=== PATIENT | female | born 1970 | race Caucasian/White ===

== ENCOUNTER → 2017-01-09 | Outpatient (CLI) | payer BC, OTHER ==
[~2017-01-09] MED LIST: ALLERGY SHOTS INJ; CETI10TA84 PO; CYCL10TA6 PO; LOSA1TAB38 PO; MULTTAB58 PO; ZNTT/150 PO
== END | disposition home or self-care (01) ==
LOC: C.LAB 13:19
PROVIDERS: ATTEND Family Medicine
DX: R14.0 Abdominal distension (gaseous) (principal)

== ENCOUNTER 2017-02-11 17:46 | Emergency (ER) | payer OTHER ==
[~2017-02-11] VITALS: Ht 162.6 cm; Wt 63.6 kg
[~2017-02-11 17:46] MED LIST changes: -CETI10TA84 PO; -LOSA1TAB38 PO; -ZNTT/150 PO
[2017-02-11 17:59] VITALS: BP 176/88; PULSE 55; TEMP 36.8; O2SAT 100; Ht 162.6 cm; Wt 63.6 kg
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
[2017-02-11] MEDS ORDERED: ZNTT/150 PO (18:46)
[2017-02-11] MEDS ORDERED: LOSA1TAB38 PO (18:46)
[2017-02-11] MEDS ORDERED: CETI10TA84 PO (18:46)
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
== END 2017-02-11 18:55 | disposition home or self-care (01) ==
LOC: C.EDB 17:47 → C.EDD 18:55
DX: S96.911A Strain of unspecified muscle and tendon at ankle and foot level, right foot, initial encounter (principal); W16.012A Fall into swimming pool striking water surface causing other injury, initial encounter; Y93.11 Activity, swimming; I10 Essential (primary) hypertension; Z79.899 Other long term (current) drug therapy

== ENCOUNTER → 2017-07-05 | Outpatient (CLI) | payer OTHER ==
[~2017-07-05] MED LIST changes: -ALLERGY SHOTS INJ; +CETI10TA84 PO; -CYCL10TA6 PO; +LOSA1TAB38 PO; +ZNTT/150 PO
--- NOTE | 2017-07-05 15:37 | MAMMOGRAPHY REPORT ---
BILATERAL DIGITAL SCREENING MAMMOGRAM TOMOSYNTHESIS WITH CAD: 07/05/2017 CLINICAL HISTORY: Routine screening. Patient has no complaints. TECHNIQUE: Breast tomosynthesis in addition to standard 2D mammography was performed. Current study was also evaluated with a Computer Aided Detection (CAD) system. COMPARISON: Comparison is made to exams dated: 07/04/2016 ultrasound, 07/04/2016 mammogram, 07/07/2015 mammogram, 12/14/2014 ultrasound, 12/14/2014 mammogram, and 07/28/2014 ultrasound - [facility]. BREAST COMPOSITION: The tissue of both breasts is extremely dense, which lowers the sensitivity of m ammography. FINDINGS: No suspicious masses, calcifications, or areas of architectural distortion are noted in ei ther breast. There has been no significant interval change compared to prior exams. IMPRESSION: ACR BI-RADS CATEGORY 1: NEGATIVE There is no mammographic evidence of malignancy. A 1 year screening mammogram is recommended. The pa tient will receive written notification of the results. Approximately 10% of breast cancers are not detected with mammography. A negative mammographic report should not delay biopsy if a clinically suggestive mass is present. Shabana Lopez M.D. ah/:07/05/2017 15:19:45 Offset Press Operator: Chrissy SMALLS(Darryl)(M), [facility] letter sent: Normal 1/2 BI-RADS Code: ACR BI-RADS Category 1: Negative
== END | disposition home or self-care (01) ==
LOC: C.MAMM 11:57
PROVIDERS: ATTEND Obstetrics & Gynecology
DX: Z12.31 Encounter for screening mammogram for malignant neoplasm of breast (principal)

== ENCOUNTER → 2017-10-04 | Outpatient (CLI) | payer OTHER ==
[~2017-10-04] MED LIST changes: +RANI150T85 PO; -ZNTT/150 PO
[2017-10-04 09:39] LABS: BASO % 0.2 %; BASO ABS # 0.01 K/uL (0-0.2); EOS % 5.9 %; EOS ABS # 0.24 K/uL (0-0.5); HEMATOCRIT 38.6 % (37-47); HEMOGLOBIN 13.5 g/dL (12.0-16.0); IG# 0.01 K/uL (0.00-0.02); LYMPH ABS # 1.64 K/uL (1.2-3.4); MEAN CELL VOLUME 91.9 fL (80-100); MEAN CORPUSCULAR HEMOGLOBIN 32.1 pg (25-34); MEAN PLATELET VOLUME 12.1 fL (7.4-10.4); MONO % 8.3 %; MONO ABS # 0.34 K/uL (0.11-0.59); NEUT % 45.4 %; NEUT ABS # 1.86 K/uL (1.4-6.5); PLATELET COUNT 170 K/uL (130-400); RED CELL DISTRIBUTION WIDTH CV 12.8 % (11.5-14.5)
[2017-10-04 10:00] LABS: BLOOD UREA NITROGEN 15 mg/dl (7-18); CALCIUM 8.9 mg/dl (8.5-10.1); CARBON DIOXIDE 28 mmol/L (21-32); CHOLESTEROL 179 mg/dl (0-200); CREATININE 0.84 mg/dl (0.60-1.20); GLUCOSE 90 mg/dl (70-99); POTASSIUM 3.9 mmol/L (3.5-5.1); SODIUM 138 mmol/L (136-145)
[2017-10-04 10:10] LABS: LDL CHOLESTEROL CALCULATED 97 mg/dl
== END | disposition home or self-care (01) ==
LOC: C.LAB 08:04
PROVIDERS: ATTEND Family Medicine
DX: Z13.220 Encounter for screening for lipoid disorders (principal); I10 Essential (primary) hypertension; L30.9 Dermatitis, unspecified; R53.83 Other fatigue

== ENCOUNTER 2023-10-02 15:13 | Inpatient (IN) ==
--- NOTE | 2023-10-02 15:17 | ED Triage Note ---
Date of Service October 02, 2023 Provider in Triage Author: Koby Hamilton History of Present Illness This patient was briefly evaluated while in triage. An abbreviated physical exam was performed. This patient is a 53-year-old Female who presents to the ED for evaluation of sick x 2 weeks. Ari marcial infection recently. Head and neck pain. Neck and jaw pain on left side, dizziness, nausea. Physical Exam GENERAL: 53 year old female. In no acute distress. SKIN: No lesions or rashes. HEART: Regular rate and rhythm. LUNGS: Clear to auscultation. NEURO: Alert and oriented. No deficits. MUSCULOSKELETAL: No deformities to inspection of the extremities. PSYCH: Patient is pleasant and answers all questions appropriately. Initial orders for labs and / or imaging were placed and patient was placed in t he waiting area until a bed is available. Please see further documentation for the full ED course.
[2023-10-02 16:01] LABS: Basophils # (auto) 0.02 K/uL (0.00-0.20); Basophils % (auto) 0.4 %; Eosinophils # (auto) 0.26 K/uL (0.00-0.50); Eosinophils % (auto) 4.9 %; Hematocrit (blood only) 40.7 % (37.0-47.0); Immature Granulocytes # (auto) 0.01 K/uL (0.01-0.20); Immature Granulocytes % (auto) 0.2 %; Lymphocytes # (auto) 2.21 K/uL (1.20-3.40); Lymphocytes % (auto) 41.3 %; Mean Corpuscular Hemoglobin 30.9 pg (25.0-34.0); Mean Corpuscular Hgb Conc 34.4 g/dL (32.0-36.0); Mean Corpuscular Volume 89.8 fL (80.0-100.0); Mean Platelet Volume 11.6 fL (9.4-12.4); Monocytes # (auto) 0.43 K/uL (0.11-0.59); Neutrophils # (auto) 2.42 K/uL (1.40-6.50); Neutrophils % (auto) 45.2 %; Platelet Count 231 K/uL (130-400); RDW Coefficient of Variation 12.7 % (11.5-14.5); RDW Standard Deviation 41.9 fL (36.4-46.3); Red Blood Count 4.53 M/uL (4.20-5.40); White Blood Count 5.35 K/ul (4.8-10.8)
[2023-10-02 16:20] LABS: Albumin Globulin Ratio 1.5 (0.9-2); Albumin Level 4.7 gm/dl (3.4-5.0); BUN Creatinine Ratio 13.3 (10-20); Bilirubin,Total 0.5 mg/dl (0.2-1.0); Calcium 9.6 mg/dl (8.6-10.3); Est GFR (African American) 71.2 ml/min; Est GFR (Non-African American) 61.4 ml/min; Globulin 3.1 gm/dl (2.5-4.0); Potassium 3.8 mmol/L (3.5-5.1); Total Protein 7.8 gm/dl (6.0-8.3)
--- NOTE | 2023-10-02 16:22 | Emergency Department Note ---
Impression & Plan Headache, Nausea, Dizziness ED Provider Note ED Provider Note NAME: MISAEL RODRÍGUEZ AGE:53 SEX: Female : 1970 ARRIVES VIA: Private vehicle INFORMANT: Patient ED PROVIDER(s): Maki Bettencourt DO CHIEF COMPLAINT: Headaches, left neck pain, sinus pressure HPI: This is a 53-year-old female presents emerged from complaining of headaches, sinus pressure, left-sided neck pain. Patient states she first began with sinus pressure and congestion 2 weeks ago and has had sinusitis in the past. She saw her PCP and was started on cefdinir and prednisone. She states headache was frontal and behind her eyes as well as in the top of her head. She states symptoms were persistent and so she saw a different PCP on Saturday and was changed to Augmentin and continued the prednisone. She states due to the left facial swelling and enlarged lymph node she was sent for an ultrasound. She states those symptoms seem improved however today she feels as though the left neck pain and swelling are returning. She states she feels it slightly difficult to swallow. She states she was tested for mono she had an exposure, and monotest was positive as was the EBV test. She states she has been nauseated and had a slightly decreased appetite, no overt vomiting or diarrhea, no abdominal pain, no chest pain. She has had a mild intermittent cough productive of yellow sputum. Last dose of ibuprofen was at 1 PM. Patient does have remote history of migraines, although states rarely gets these anymore and does use Maxalt when these occur. PAST MEDICAL HISTORY:See Below PAST SURGICAL HISTORY:See Below FAMILY HISTORY:See Below SOCIAL HISTORY:See Below HOME MEDICATIONS:See Below ALLERGIES:See Below VITALS:See Below PHYSICAL EXAMINATION: GENERAL: alert, well appearing, well nourished, no distress, non-toxic HEAD/FACE: No obvious facial edema, slight fullness noted left submandibular region, tenderness with percussion over the left frontal sinus EYE EXAM: normal conjunctiva, PERRL and EOM's grossly intact OROPHARYNX: no exudate, no erythema, lips, buccal mucosa, and tongue normal and mucous membranes are moist NECK: supple, no nuchal rigidity, no adenopathy, non-tender LUNGS: Clear to auscultation. Normal chest wall mechanics, no w/r/r HEART: no murmurs, S1 normal and S2 normal ABDOMEN: abdomen soft, non-tender, normo-active bowel sounds, no masses, no rebound or guarding. BACK: Back is symmetrical on inspection and there is no deformity, no midline tenderness, no CVA tenderness. SKIN: no rashes, petechiae, orbruising UPPER EXTREMITIES: upper extremities are grossly normal. FROM, nml pulses b/l. LOWER EXTREMITIES: No pitting edema. FROM, nml pulses b/l. NEURO EXAM: Normal sensorium, cranial nerves II-XII grossly intact, normal speech, no facial droop,nogross weakness of arms, no gross weakness of legs. Gross sensation intact. No ataxia. Vital Signs: reviewed and remarkable Differential Diagnosis: Acute sinusitis, WORD PROCESSOR infection, atypical migraine, tension headache, medication ADR, dehydration, CVA, ICH, as well as others were considered MEDICAL DECISION MAKING: This is a 53-year-old female presents emergency department due to ongoing headaches, nausea, sinus pressure, and left-sided facial pain. Patient has been recently treated with antibiotics as well as steroids. She will have mild intermittent improvement and then worsening of symptoms again. No prior similar episodes. Remote history of migraines although this is unlike her prior migraine episodes. Patient was afebrile vital signs stable. Labs drawn and sent, IV established, patient monitored on telemetry. Nasal swab was performed for a viral respiratory panel. She was sent for CT/CT angiography. Patient's labs and imaging reassuring. Patient given multiple medications well monitored in the emergency room including IV Tylenol, IV Compazine, IV Benadryl, IV Toradol, IV Depakote, IV Zofran, without significant improvement. Due to persistent symptoms particularly with any movement, patient living alone, and concern for ability to even perform ADLs due to symptoms at this time, case discussed with hospitalist team for additional evaluation and management. UDS added per their request. Consultation(s): 2199: DIscussed with Dr. Bhatt, [place] hospitalist, for additional evaluation. He did request UDS be added. ER Treatment Provided: See below Diagnostics Interpreted By Me: -Cardiac Monitoring: An order was placed for continuous cardiac monitoring. The monitor shows a rate of 50 with sinus bradycardia rhythm. -Laboratory studies: As stated above and show below. -Imaging studies: CT head: No obvious ICH per my interpretation Triage Nursing Note Reviewed Prior/Outside Records Reviewed Past Med/Surg History Medical History (Updated 10/02/23 @ 23:36 by Lukasz Iyer DO) HTN (hypertension) History of COVID-13 june 2021. symptoms: fatigue and chest congestion, mild sob, fever, body aches. no hospitalization. did receive the antibody infusion. History of migraine headaches TMJ (temporomandibular joint disorder) OCC CLICK, GRINDING OF TEETH - NO HX LOCKING Bulging disc LUMBAR Nausea and vomiting after administration of anesthetic agent Bradycardia Breast lump LEFT/HX ULTRASOUNDS / NO FINDINGS/MONITORS Surgical History S/P epidural steroid injection right SI Joint injection [place] teeth removed History of appendectomy History of lumpectomy of right breast benign History of right breast biopsy benign History of open reduction and internal fixation (ORIF) procedure left ankle---hardware in place History of colonoscopy History of esophagogastroduodenoscopy (EGD) History of sinus surgery Status post LASIK surgery HX S/P laparoscopic procedure HX OF, endometriosis S/P LEEP HX Hx of hysterectomy Hx of section 1994 Family History Aunt Breast cancer Father Diabetes Cardiac disorder Hypertension Heart disease Mother Hypertension Family history of reaction to anesthesia nausea/vomiting Grandfather Prostate cancer Sister No problems noted. Sister No problems noted. Sister Hypertension Brother Hypertension Daughter Raynaud disease Sjogrens syndrome Denies family history of Ovarian cancer Myocardial infarction Colorectal cancer Uterine cancer Social History Smoking Status: Never smoker Second Hand Exposure: No; Do You Dip or Chew Tobacco: No; Hx Alcohol Use: Yes Alcohol type: wine Alcohol Intake Frequency: Monthly or Less Hx Substance Use: No Preferred Language: Maltese Communication Ability: Effective Visual Impairment: No Limitations Hearing Ability: Normal Certified Pest Control Technician Required: No Beliefs That Will Affect Care: None marital status: Current Living Situation: Spouse Current Living Situation Comment: Lives with current occupational status: employed 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 [employer] Feels Safe at Home: Yes Childhood Exposure to Second-Hand Smoke: No Diet: gluten free during the past year weight has: remained stable Dental Care, Regularly: Yes Physical Activity Frequency: 3-4 Times per Week Seatbelt Use: always Sunscreen Use: Yes Assistive Devices: Glasses Allergies Allergies Allergy/AdvReac Type Severity Reaction Status Date / Time ciprofloxacin Allergy Unknown Rash Verified 10/02/23 17:27 furosemide [From Lasix] Allergy Unknown itchy Verified 10/02/23 17:27 gluten Allergy Unknown Gastrointestinal Verified 10/02/23 17:27 Upset, MIGRAINES AND HIVES morphine Allergy Unknown feels like Verified 10/02/23 17:27 throat is closing up Sulfa (Sulfonamide Allergy Unknown Rash Verified 10/02/23 17:27 Antibiotics) Home Meds Home Medications Medication Instructions Recorded Confirmed levocetirizine 5 mg tablet (Xyzal) 5 mg PO HS 07/07/19 10/02/23 omega 1-iqr-yyj-fish oil 1,000 mg 2 cap PO HS 01/07/20 10/02/23 (120 mg-180 mg) capsule (Fish Oil) ibuprofen 200 mg capsule 600 mg PO UD PRN Pain 05/04/20 10/02/23 estradiol 0.01% (0.1 mg/gram) 1 g vaginal DAILY PRN irritation 11/27/21 10/02/23 vaginal cream valacyclovir 1 gram tablet 2,000 mg PO BID PRN Cold Sores 11/27/21 10/02/23 (Valtrex) clotrimazole-betamethasone 1 1 applic topical BID PRN flare 09/24/23 10/02/23 %-0.05 % topical cream magnesium 250 mg tablet 250 mg PO HS 09/24/23 10/02/23 losartan 100 mg tablet 100 mg PO HS 10/02/23 10/02/23 pantoprazole 40 mg tablet,delayed 40 mg PO HS 10/02/23 10/02/23 release Previous Rx's Medication Instructions Recorded rizatriptan 10 mg tablet (Maxalt) 10 mg PO DAILY PRN migraine 10/17/22 headache #12 tabs montelukast 10 mg tablet 10 mg PO HS #90 tabs 08/08/23 amoxicillin 875 mg-potassium 1 tab PO Q12H 10 days #20 tabs 09/24/23 clavulanate 125 mg tablet Results & Data (ED) Vital Signs Vital Signs - 24 hr 10/02/23 15:17 10/02/23 18:45 10/02/23 20:32 Temperature 36.8 C 36.8 C Temperature Source Temporal Artery Scan Oral Pulse Rate 57 L Pulse Rate [Right Finger] 70 46 L Pulse Rhythm [Right Finger] Regular Pulse Strength [Right Finger] Normal Respiratory Rate 20 20 20 Respiratory Effort / Characteristics Non-Labored Spontaneous Non-Labored Spontaneous Respiratory Depth Normal Normal Respiratory Pattern Regular Regular Blood Pressure 194/117 H Blood Pressure [Right Arm] 132/78 165/93 H Blood Pressure Mean 142 Blood Pressure Mean [Right Arm] 96 117 Blood Pressure Position [Right Arm] Semi-fowlers Pulse Oximetry 100 100 97 Oxygen Delivery Method Room Air Room Air Sepsis Recent Fever Within 48 Hours No Sepsis New/Unexplained Change in Mental Status No Sepsis Action Taken by Nursing No Action Required 10/02/23 22:49 10/03/23 00:00 Temperature Temperature Source Pulse Rate Pulse Rate [Right Finger] 41 L 44 L Pulse Rhythm [Right Finger] Regular Pulse Strength [Right Finger] Normal Respiratory Rate 20 16 Respiratory Effort / Characteristics Non-Labored Spontaneous Respiratory Depth Normal Respiratory Pattern Regular Blood Pressure Blood Pressure [Right Arm] 144/78 H 131/79 Blood Pressure Mean Blood Pressure Mean [Right Arm] 100 96 Blood Pressure Position [Right Arm] Lying Pulse Oximetry 96 97 Oxygen Delivery Method Room Air Room Air Sepsis Recent Fever Within 48 Hours Sepsis New/Unexplained Change in Mental Status Sepsis Action Taken by Nursing Laboratory Data 10/02/23 15:40 10/02/23 15:40 Lab Results 10/02/23 10/02/23 Range/Units 15:40 16:38 WBC 5.35 (4.8-10.8) K/ul RBC 4.53 (4.20-5.40) M/uL Hgb 14.0 (12.0-16.0) g/dl Hct 40.7 (37.0-47.0) % MCV 89.8 (80.0-100.0) fL MCH 30.9 (25.0-34.0) pg MCHC 34.4 (32.0-36.0) g/dL RDW Std Deviation 41.9 (36.4-46.3) fL RDW Coeff of Thuy 12.7 (11.5-14.5) % Plt Count 231 (130-400) K/uL MPV 11.6 (9.4-12.4) fL Immature Gran % (Auto) 0.2 % Neut % (Auto) 45.2 % Lymph % (Auto) 41.3 % [place] % (Auto) 8.0 % Eos % (Auto) 4.9 % Baso % (Auto) 0.4 % Neut # (Auto) 2.42 (1.40-6.50) K/uL Lymph # (Auto) 2.21 (1.20-3.40) K/uL Hardeman # (Auto) 0.43 (0.11-0.59) K/uL Eos # (Auto) 0.26 (0.00-0.50) K/uL Baso # (Auto) 0.02 (0.00-0.20) K/uL Immature Gran # (Auto) 0.01 (0.01-0.20) K/uL PT 10.4 (9.0-12.0) Seconds INR 0.9 (0.9-1.1) APTT 26 (21-31) Seconds PTT Ratio 0.9 Sodium 139 (136-145) mmol/L Potassium 3.8 (3.5-5.1) mmol/L Chloride 104 (98-107) mmol/L Carbon Dioxide 28 (21-32) mmol/L Anion Gap 7 (3-11) BUN 14 (6-23) mg/dl Creatinine 1.05 (0.6-1.2) mg/dl Est Cr Clr Drug Dosing 57.0 ml/min Est GFR ( Amer) 71.2 ml/min Est GFR (Non-Af Amer) 61.4 ml/min BUN/Creatinine Ratio 13.3 (10-20) Glucose 96 (70-99(Fasting)) mg/dl Calcium 9.6 (8.6-10.3) mg/dl Total Bilirubin 0.5 (0.2-1.0) mg/dl AST 16 (13-39) U/L ALT 20 (7-52) U/L Alkaline Phosphatase 57 (34-104) U/L Total Protein 7.8 (6.0-8.3) gm/dl Albumin 4.7 (3.4-5.0) gm/dl Globulin 3.1 (2.5-4.0) gm/dl Albumin/Globulin Ratio 1.5 (0.9-2) Procalcitonin < 0.05 (0-0.5) ng/ml TSH 1.364 (0.300-4.500) uIu/ml Adenovirus (PCR) Not Detected (NotDetected) B. pertussis DNA (PCR) Not Detected (NotDetected) B.parapertussis DNA PCR Not Detected (NotDetected) C. pneumoniae DNA (PCR) Not Detected (NotDetected) Coronavirus OC43 (PCR) Not Detected (NotDetected) Coronavirus HKU1 (PCR) Not Detected (NotDetected) Coronavirus 229E (PCR) Not Detected (NotDetected) SARS-CoV-2 (PCR) Not Detected (NotDetected) Coronavirus NL63 (PCR) Not Detected (NotDetected) Human Metapneumovir PCR Not Detected (NotDetected) Influenza Type A (PCR) Not Detected (NotDetected) Influenza Type B (PCR) Not Detected (NotDetected) M. pneumoniae (PCR) Not Detected (NotDetected) Parainfluenza 1 (PCR) Not Detected (NotDetected) Parainfluenza 2 (PCR) Not Detected (NotDetected) Parainfluenza 3 (PCR) Not Detected (NotDetected) Parainfluenza 4 (PCR) Not Detected (NotDetected) RSV (PCR) Not Detected (NotDetected) Entero/Rhino (PCR) Not Detected (NotDetected) Administered Medications Discontinued Medications Dexamethasone Sodium Phosphate (DexamethasonePf 10 Mg/Ml Vial) 10 mg IV ONE STA Stop: 10/02/23 23:06 Last Admin: 10/03/23 00:08 Dose: 10 mg Documented By: IDD Diphenhydramine HCl (Diphenhydramine 50 Mg/Ml Vial) 25 mg IV NOW STA Stop: 10/02/23 18:13 Last Admin: 10/02/23 18:35 Dose: 25 mg Documented By: CAW Acetaminophen (Ofirmev) 1,000 mg in 100 mls @ 400 mls/hr IV NOW STA Stop: 10/02/23 16:32 Last Infusion: 10/02/23 18:41 Dose: Infused Documented By: Admin: 10/02/23 16:42 Dose: 400 mls/hr Documented By: BENJIW Prochlorperazine (Compazine) 1 mls @ 1 mls/min IV ONE ONE Stop: 10/02/23 18:13 Last Admin: 10/02/23 18:36 Dose: 1 mls/min Documented By: CAW Sodium Chloride (Nss) 1,000 mls @ 999 mls/hr IV .Q1H1M ONE Stop: 10/02/23 19:13 Last Infusion: 10/02/23 22:56 Dose: Infused Documented By: Admin: 10/02/23 18:42 Dose: 999 mls/hr Documented By: CAW Valproic Acid 500 mg/ Dextrose 55 mls @ 55 mls/hr IV NOW STA Stop: 10/02/23 20:26 Last Infusion: 10/02/23 22:56 Dose: Infused Documented By: Admin: 10/02/23 20:33 Dose: 55 mls/hr Documented By: CPB Acetaminophen (Ofirmev) 1,000 mg in 100 mls @ 400 mls/hr IV NOW STA Stop: 10/02/23 22:28 Last Infusion: 10/03/23 00:08 Dose: Infused Documented By: Admin: 10/02/23 22:52 Dose: 400 mls/hr Documented By: CPB Ioversol (Optiray 320 125ml) 116 ml IV ONCE ONE Stop: 10/02/23 17:17 Last Admin: 10/02/23 17:16 Dose: 116 ml Documented By: MI Ketorolac Tromethamine (Ketorolac Tromethamine 15 Mg/Ml Vial) 10 mg IV NOW ONE Stop: 10/02/23 18:13 Last Admin: 10/02/23 18:35 Dose: 10 mg Documented By: CAW Ondansetron HCl (Ondansetron Inj 2 Mg/Ml 2 Ml Vial) 4 mg IV NOW STA Stop: 10/02/23 22:14 Last Admin: 10/02/23 22:52 Dose: 4 mg Documented By: CPB Imaging Data Radiologist's Impression: Head CTA 10/02/23 15:19 CT angio head wo/w, CT angio neck with con CLINICAL HISTORY: 53 years-old Female with Headache, dizziness, neck pain. Acute headache with dizziness and neck pain COMPARISON STUDY: None TECHNIQUE: Unenhanced axial CT scan of the brain is performed. Subsequently, following the IV administration of 116 cc of Optiray, CT angiogram of the head and neck was performed from the aortic arch to the skull apex. Images are reviewed in the axial, sagittal, and coronal planes. 3-D MIPS images are created and assessed. IV contrast was administered without complication. All measurements were obtained according to NASCET criteria. A dose lowering technique was utilized adhering to the principles of ALARA. FINDINGS: CT BRAIN: There is no acute intracranial hemorrhage, midline shift, hydrocephalus, intracranial mass, territorial ischemia or abnormal extra-axial collections. No abnormal intra-axial or extra-axial enhancement. Mastoid air cells and middle ear cavities are clear. Partial ethmoidectomy with maxillary antrostomy. No calvarial fracture. Paranasal sinuses are clear. CT ANGIOGRAM OF THE HEAD AND NECK: Three-vessel morphology of the thoracic aortic arch. Patency of the innominate and image subclavian arteries. The common and internal carotid arteries are widely patent. The bilateral anterior and middle cerebral arteries are also patent. The vertebrobasilar system and posterior cerebral arteries are widely patent. There is no aneurysm, high-grade stenosis, or proximal branch occlusion identified. Dural sinuses appear patent. Mild degenerative changes of the cervical spine. Lung apices are clear. No pneumothorax. Subcentimeter hypodense left-sided thyroid nodule. Mild nonspecific upper esophageal wall thickening. IMPRESSION: 1. No acute intracranial abnormality. 2. Unremarkable CTA of the head and neck. ACT 112: Negative or not required by law. The above report was generated using voice recognition software. It may contain grammatical, syntax or spelling errors. Electronically signed by: Bryant Mancilla M.D. 10/02/2023 5:42 PM Neck CTA 10/02/23 15:19 CT angio head wo/w, CT angio neck with con CLINICAL HISTORY: 53 years-old Female with Headache, dizziness, neck pain. Acute headache with dizziness and neck pain COMPARISON STUDY: None TECHNIQUE: Unenhanced axial CT scan of the brain is performed. Subsequently, following the IV administration of 116 cc of Optiray, CT angiogram of the head and neck was performed from the aortic arch to the skull apex. Images are reviewed in the axial, sagittal, and coronal planes. 3-D MIPS images are created and assessed. IV contrast was administered without complication. All measurements were obtained according to NASCET criteria. A dose lowering technique was utilized adhering to the principles of ALARA. FINDINGS: CT BRAIN: There is no acute intracranial hemorrhage, midline shift, hydrocephalus, intracranial mass, territorial ischemia or abnormal extra-axial collections. No abnormal intra-axial or extra-axial enhancement. Mastoid air cells and middle ear cavities are clear. Partial ethmoidectomy with maxillary antrostomy. No calvarial fracture. Paranasal sinuses are clear. CT ANGIOGRAM OF THE HEAD AND NECK: Three-vessel morphology of the thoracic aortic arch. Patency of the innominate and image subclavian arteries. The common and internal carotid arteries are widely patent. The bilateral anterior and middle cerebral arteries are also patent. The vertebrobasilar system and posterior cerebral arteries are widely patent. There is no aneurysm, high-grade stenosis, or proximal branch occlusion identified. Dural sinuses appear patent. Mild degenerative changes of the cervical spine. Lung apices are clear. No pneumothorax. Subcentimeter hypodense left-sided thyroid nodule. Mild nonspecific upper esophageal wall thickening. IMPRESSION: 1. No acute intracranial abnormality. 2. Unremarkable CTA of the head and neck. ACT 112: Negative or not required by law. The above report was generated using voice recognition software. It may contain grammatical, syntax or spelling errors. Electronically signed by: Bryant Mancilla M.D. 10/02/2023 5:42 PM Chest X-Ray 10/02/23 16:22 XR chest 1V portable HISTORY: 53 years-old Female cough acute headache with shortness of breath COMPARISON: 06/26/2012 TECHNIQUE: AP view of the chest FINDINGS: Cardiomediastinal and hilar silhouettes are within normal limits. No pneumothorax, pleural effusion or airspace consolidation. Bones appear grossly intact. IMPRESSION: No acute process. ACT 112: Negative or not required by law. The above report was generated using voice recognition software. It may contain grammatical, syntax or spelling errors. Electronically signed by: Bryant Mancilla M.D. 10/02/2023 5:11 PM Discharge Plan Visit Data Chief Complaint: Headache Stated Complaint: HEAD & NECK PAIN ED Provider: Maki Bettencourt Discharge Problem: Headache, Nausea, Dizziness Forms Stand Alone Forms: [email or web address] Prescriptions Prescriptions: No Action rizatriptan [Maxalt] 10 mg tablet 10 mg PO DAILY PRN (Reason: migraine headache) Qty: 12 1RF montelukast 10 mg tablet 10 mg PO HS Qty: 90 3RF clotrimazole-betamethasone 1-0.05 % cream 1 applic topical BID PRN (Reason: flare) amoxicillin-pot clavulanate 875-125 mg tablet 1 tab PO Q12H 10 Days Qty: 20 0RF Rx Instructions: Start Date 09/24/23 - End Date 10/04/23 levocetirizine [Xyzal] 5 mg tablet 5 mg PO HS omega 8-lxf-swv-fish oil [Fish Oil] 1,000 mg (120 mg-180 mg) Capsule 2 cap PO HS magnesium 250 mg tablet 250 mg PO HS ibuprofen 200 mg Capsule 600 mg PO UD PRN (Reason: Pain) valacyclovir [Valtrex] 1 gram tablet 2,000 mg PO BID PRN (Reason: Cold Sores) Rx Instructions: Start KENIA after start of symptoms estradiol 0.01 % (0.1 mg/gram) cream 1 g vaginal DAILY PRN (Reason: irritation) pantoprazole 40 mg tablet,delayed release (DR/EC) 40 mg PO HS losartan 100 mg tablet 100 mg PO HS Referrals Referrals: Coby Womack MD [Primary Care Provider] -
[2023-10-02 16:29] LABS: INR 0.9 (0.9-1.1); Partial Thromboplastin Ratio 0.9; Partial Thromboplastin Time 26 Seconds (21-31); Prothrombin Time 10.4 Seconds (9.0-12.0)
[2023-10-02 16:33] LABS: Thyroid Stimulating Hormone 1.364 uIu/ml (0.300-4.500)
[2023-10-02] MEDS: ACETAMINOPHEN 1,000 MG/100 ML VIAL IV STA ×2 (16:42→22:52)
--- NOTE | 2023-10-02 17:12 | XRay Report ---
XR chest 1V portable HISTORY: 53 years-old Female cough acute headache with shortness of breath COMPARISON: 06/26/2012 TECHNIQUE: AP view of the chest FINDINGS: Cardiomediastinal and hilar silhouettes are within normal limits. No pneumothorax, pleural effusion o r airspace consolidation. Bones appear grossly intact. IMPRESSION: No acute process. ACT 112: Negative or not required by law. The above report was generated using voice recognition software. It may contain grammatical, syntax o r spelling errors. Electronically signed by: Bryant Mancilla M.D. 10/02/2023 5:11 PM
[2023-10-02] MEDS: OPTIRAY 320 125ml IV ONE (17:16)
[2023-10-02 17:41] LABS: Adenovirus PCR Not Detected (NotDetected); Bordetella parapertussis PCR Not Detected (NotDetected); Bordetella pertussis PCR Not Detected (NotDetected); Chlamydia pneumoniae PCR Not Detected (NotDetected); Coronavirus 229E PCR Not Detected (NotDetected); Coronavirus CoV-2 (COVID19)PCR Not Detected (NotDetected); Coronavirus HKU1 PCR Not Detected (NotDetected); Coronavirus NL63 PCR Not Detected (NotDetected); Coronavirus OC43PCR Not Detected (NotDetected); Human Metapneumovirus PCR Not Detected (NotDetected); Influenza A PCR Not Detected (NotDetected); Influenza B PCR Not Detected (NotDetected); Mycoplasma pneumoniae PCR Not Detected (NotDetected); Parainfluenza Virus 1 PCR Not Detected (NotDetected); Parainfluenza Virus 2 PCR Not Detected (NotDetected); Parainfluenza Virus 3 PCR Not Detected (NotDetected); Parainfluenza Virus 4 PCR Not Detected (NotDetected); Respiratory Syncytial VirusPCR Not Detected (NotDetected); Rhinovirus/Enterovirus PCR Not Detected (NotDetected)
--- NOTE | 2023-10-02 17:44 | CT Scan Report ---
CT angio head wo/w, CT angio neck with con CLINICAL HISTORY: 53 years-old Female with Headache, dizziness, neck pain. Acute headache with diz ziness and neck pain COMPARISON STUDY: None TECHNIQUE: Unenhanced axial CT scan of the brain is performed. Subsequently, following the IV adminis tration of 116 cc of Optiray, CT angiogram of the head and neck was performed from the aortic arch to the skull apex. Images are reviewed in the axial, sagittal, and coronal planes. 3-D MIPS images are created and assessed. IV contrast was administered without complication. All measurements were obtain ed according to NASCET criteria. A dose lowering technique was utilized adhering to the principles of ALARA. FINDINGS: CT BRAIN: There is no acute intracranial hemorrhage, midline shift, hydrocephalus, intracranial mass, territori al ischemia or abnormal extra-axial collections. No abnormal intra-axial or extra-axial enhancement. Mastoid air cells and middle ear cavities are clear. Partial ethmoidectomy with maxillary antrostomy . No calvarial fracture. Paranasal sinuses are clear. CT ANGIOGRAM OF THE HEAD AND NECK: Three-vessel morphology of the thoracic aortic arch. Patency of the innominate and image subclavian a rteries. The common and internal carotid arteries are widely patent. The bilateral anterior and middl e cerebral arteries are also patent. The vertebrobasilar system and posterior cerebral arteries are w idely patent. There is no aneurysm, high-grade stenosis, or proximal branch occlusion identified. Dur al sinuses appear patent. Mild degenerative changes of the cervical spine. Lung apices are clear. No pneumothorax. Subcentimete r hypodense left-sided thyroid nodule. Mild nonspecific upper esophageal wall thickening. IMPRESSION: 1. No acute intracranial abnormality. 2. Unremarkable CTA of the head and neck. ACT 112: Negative or not required by law. The above report was generated using voice recognition software. It may contain grammatical, syntax o r spelling errors. Electronically signed by: Bryant Mancilla M.D. 10/02/2023 5:42 PM
[2023-10-02] MEDS: KETOROLAC TROMETHAMINE 15 MG/ML VIAL IV ONE (18:35)
[2023-10-02] MEDS: diphenhydrAMINE 50 MG/ML VIAL IV STA (18:35)
[2023-10-02] MEDS: PROCHLORPERAZINE 1 ML IV ONE (18:36)
[2023-10-02] MEDS: SODIUM CHLORIDE 0.9% 1,000 ML IV ONE (18:42)
[2023-10-02] MEDS: VALPROATE SOD 500 MG in DEXTROSE 5% 50 ML IV STA (20:33)
[2023-10-02] MEDS: ONDANSETRON INJ 2 MG/ML 2 ML VIAL IV STA (22:52)
--- NOTE | 2023-10-02 23:23 | History & Physical Report ---
Date of Service October 02, 2023 Assessment & Plan (1) Ari Rascon infection: (2) HTN (hypertension): (3) GERD (gastroesophageal reflux disease): Plan #EBV Pain control IV steroids Consider ENT consult #HTN continue losartan #GERD continue protonix FENGI: heart healthy Code status: Full DVT prophylaxis: Lovenox Isolation: none Disposition: med/surg History of Present Illness Primary Care Provider: Coby Womack MD 53 yo female PMHx HTN, migraine, GERD admitted with L facial swelling/pain/lymph adenopathy in the setting of recent diagnosis of EBV. Patient initially treated with abx for suspected sinus infection. Symptoms did not resolve. Given steroid taper with initial improvement. Over the last day or two pain and swelling in region of lymphadenopathy has increased. Endorses headache. No difficulty swallowing. Denies CP, SOB, V/D. Some nausea with standing. ED course Imaging: unremarkable Labs: unremarkable IV tylenol, IV benedryl, IV ketorolac, zofran VSS Allergies Allergy/AdvReac Type Severity Reaction Status Date / Time ciprofloxacin Allergy Unknown Rash Verified 10/02/23 17:27 furosemide [From Lasix] Allergy Unknown itchy Verified 10/02/23 17:27 gluten Allergy Unknown Gastrointestinal Verified 10/02/23 17:27 Upset, MIGRAINES AND HIVES morphine Allergy Unknown feels like Verified 10/02/23 17:27 throat is closing up Sulfa (Sulfonamide Allergy Unknown Rash Verified 10/02/23 17:27 Antibiotics) Home Medications Medication Instructions Recorded Confirmed Type levocetirizine 5 mg tablet (Xyzal) 5 mg PO HS 07/07/19 10/02/23 History omega 1-mhp-cys-fish oil 1,000 mg 2 cap PO HS 01/07/20 10/02/23 History (120 mg-180 mg) capsule (Fish Oil) ibuprofen 200 mg capsule 600 mg PO UD PRN Pain 05/04/20 10/02/23 History estradiol 0.01% (0.1 mg/gram) 1 g vaginal DAILY PRN irritation 11/27/21 10/02/23 History vaginal cream valacyclovir 1 gram tablet 2,000 mg PO BID PRN Cold Sores 11/27/21 10/02/23 History (Valtrex) rizatriptan 10 mg tablet (Maxalt) 10 mg PO DAILY PRN migraine 10/17/22 10/02/23 Rx headache #12 tabs montelukast 10 mg tablet 10 mg PO HS #90 tabs 08/08/23 10/02/23 Rx amoxicillin 875 mg-potassium 1 tab PO Q12H 10 days #20 tabs 09/24/23 10/02/23 Rx clavulanate 125 mg tablet clotrimazole-betamethasone 1 1 applic topical BID PRN flare 09/24/23 10/02/23 History %-0.05 % topical cream magnesium 250 mg tablet 250 mg PO HS 09/24/23 10/02/23 History losartan 100 mg tablet 100 mg PO HS 10/02/23 10/02/23 History pantoprazole 40 mg tablet,delayed 40 mg PO HS 10/02/23 10/02/23 History release Past Med/Surg History Medical History (Updated 10/02/23 @ 23:36 by Lukasz Iyer DO) HTN (hypertension) History of COVID-13 june 2021. symptoms: fatigue and chest congestion, mild sob, fever, body aches. no hospitalization. did receive the antibody infusion. History of migraine headaches TMJ (temporomandibular joint disorder) OCC CLICK, GRINDING OF TEETH - NO HX LOCKING Bulging disc LUMBAR Nausea and vomiting after administration of anesthetic agent Bradycardia Breast lump LEFT/HX ULTRASOUNDS / NO FINDINGS/MONITORS Surgical History S/P epidural steroid injection right SI Joint injection [place] teeth removed History of appendectomy History of lumpectomy of right breast benign History of right breast biopsy benign History of open reduction and internal fixation (ORIF) procedure left ankle---hardware in place History of colonoscopy History of esophagogastroduodenoscopy (EGD) History of sinus surgery Status post LASIK surgery HX S/P laparoscopic procedure HX OF, endometriosis S/P LEEP HX Hx of hysterectomy Hx of section 1994 Family History Aunt Breast cancer Father Diabetes Cardiac disorder Hypertension Heart disease Mother Hypertension Family history of reaction to anesthesia nausea/vomiting Grandfather Prostate cancer Sister No problems noted. Sister No problems noted. 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 Required: No Beliefs That Will Affect Care: None marital status: Current Living Situation: Spouse Current Living Situation Comment: Lives with current occupational status: employed 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 [employer] Other Information That Helps Us Care for You: No Feels Safe at Home: Yes Safety Concerns: Feels Safe At This Time Childhood Exposure to Second-Hand Smoke: No Diet: gluten free during the past year weight has: remained stable Dental Care, Regularly: Yes Physical Activity Frequency: 3-4 Times per Week Seatbelt Use: always Sunscreen Use: Yes Assistive Devices: None Review of Systems Review of Systems: reviewed, per HPI Physical Exam Physical Exam: Constitutional: well-appearing, no acute distress HEENT: NCAT, no conjunctival injection, L cervical lymphadenopathy present, mildly TTP CV: regular rhythm, no murmur appreciated, extremities well-perfused, no LE edema Resp: CTABL, no wheezes/rales/rhonchi appreciated, no increased work of breathing GI: soft, nondistended, nontender MSK: no gross deformities appreciated Skin: warm, dry, no rash appreciated Neuro: alert, oriented, no focal neurologic deficit appreciated Results & Data Results & Data Vital Signs (Past 12 Hours) Vital Signs Temp Pulse Pulse Resp BP BP Pulse Ox 10/02/23 22:49 41 L 20 144/78 H 96 10/02/23 20:32 46 L 20 165/93 H 97 10/02/23 18:45 36.8 C 70 20 132/78 100 10/02/23 15:17 36.8 C 57 L 20 194/117 H 100 O2 Del Method 10/02/23 22:49 Room Air 10/02/23 20:32 10/02/23 18:45 Room Air 10/02/23 15:17 Room Air Code Status & VTE Plan VTE Prophylaxis Plan VTE Prophylaxis will be ordered: Yes Supervising Physician Co-Signing Physician Notes Attending addendum: I have physically seen this patient, have supervised the medical residents activities, and agree with the H&P unless as otherwise noted. Assessment and Plan: Acute Ari-Rascon virus infection- Intractable headache and neck pain Respiratory BioFire negative UDS negative EBV testing positive for acute infection of 09/24/2023 CT head without contrast normal, CTA head and neck negative Order MRI brain with and without contrast From the ED received the following: Tylenol 1 g IV, Toradol 10 mg IV, Compazine, Benadryl 25 mg IV, valproic acid 5 mg IV and normal saline 1 L bolus, without improvement in symptoms Placed on dexamethasone 10 mg IV now, and 4 mg IV every 8 hours Consult neurology Hypertension- Continue losartan GERD- Continue Protonix
[2023-10-03] MEDS: dexAMETHasone**PF** 10 MG/ML VIAL IV STA (00:08)
--- OUTSIDE RECORDS SUMMARY | 2023-10-03 02:11 | External Medical Summary | Summary of Care ---
Author Name Unknown Organization [facility] Address [address] [place] [address] Phone [phone] Care Team Providers Care Heater Furnace Name Role Phone Efrem Colbert Primary Care Provider Reason for Visit * Reason Onset Date Comments Medical Records Request 10/02/2023 Encounter Details Date Type Department Care Team (Late st Contact Info) Description 10/02/2023 Telephone General Surgery, [facility] [address] [place] [id number] Odalys Myers MD [address] [facility] [place] [address] Medical Records Request Allergies Active Allergy Reactions Criticality Noted Date Comments Morphine Other (Please comment) 09/16/2020 Morphine Sulfate Edema airway High 12/10/2007 Sulfa Antibiotics Rash 12/10/2007 documented as of this encounter (statuses as of 10/02/2023) Medications Medication Sig Dispensed Refills Start Date End Date Status MULTIVITAMINS PO CAPS 1 tab daily 0 Ac tive VALACYCLOVIR HCL 1 G PO TABSIndications:Herpeti c gingivostomatitis TAKE TWO TABLETS BY MOUTH EVERY 12 HOURS FOR 1 DAY FOR COLD SORES 4 Tab 11 05/07/2012 Active Additional Information Patient not taking.Reported on 05/20/2023 Rizatriptan Benzoate 10 MG Tablet As needed 0 06/24/2015 Active Losartan Potassium 100 MG Tablet 1 daily 0 10/17/2015 Active clotrimazole-betamethas one (LOTRISONE) 1-0.05 % cream apply A SMALL AMOUNT to affected area at bedtime for 3 days FOR I... (REFER TO PRESCRIPTION NOTES). 0 10/10/2018 Active Levocetirizine Dihydrochloride 5 MG Oral Tablet Take 1 Tablet by mouth every evening. 0 Active [place]-3 Fatty Acids (FISH OIL) 1000 MG Capsule Take 1 Capsule by mouth in the morning. 0 Active montelukast (SINGULAIR) 10 MG Tablet Take 1 Tablet by mouth in the morning. 30 Tab 11 03/17/2020 Active Flonase Sensimist 27.5 MCG/SPRAY Nasal Suspension (Fluticasone Furoate) Administer 2 Sprays into nostril daily. 10 g 12 09/16/2020 Active Additional Information Patient not taking.Reported on 05/20/2023 Albuterol Sulfate HFA 108 (90 Base) MCG/ACT Inhalation Aerosol Solution Inhale 2 Puffs by mouth every 4 hours as needed for Cough, Shortness of Breath or Wheezing. 18 g 3 06/02/2021 Active Tyrvaya 0.03 MG/ACT Nasal Solution 0 12/06/2021 Active Fluticasone Propionate HFA 110 MCG/ACT Inhalation Aerosol (Flovent HFA) Inhale by mouth 2 Puffs in the morning AND 2 Puffs before bedtime. 12 g 1 01/15/2022 Active Additional Information Patient not taking.Reported on 05/20/2023 Pantoprazole Sodium 40 MG Oral Tablet Delayed Release (Protonix) Take 1 Tablet by mouth in the morning. 0 10/22/2022 Active documented as of this encounter (statuses as of 10/02/2023) Active Problems Problem Noted Date Diagnosed Date Mild persistent asthma without complication 03/27 Disturbance of smell and taste 03/17/2020 Allergic conjunctivitis, bilateral 03/17/2020 Allergic rhinitis 03/17/2020 Elevated blood pressure, situational 05/07/2012 ADVANCE DIRECTIVE INFORMATION 02/03/2008 Overview: Yes, Patient instructed to provide copy of advance directive for provider to review and to be scanned into Electronic Medical Record Bruxism, sleep-related Overview: on ativan - sees Dr. Ny Endometriosis Dry eyes Migraine documented as of this encounter (statuses as of 10/02/2023) Resolved Problems Problem Noted Date Diagnosed Date Resolved Date Sjogren's syndrome 10/18/2015 6 Cough 05/07/2012 03/17/2020 Strep sore throat 12/01/2011 01/24/2012 Acute bronchitis, complicated 10/17/2010 05/24/2011 Elevated blood pressure, situational 11/02/2011 Overview: on and off meds in past documented as of this encounter (statuses as of 10/02/2023) Immunizations Name Administration Dates Next Due Seasonal Influenza Virus Vac cine, Unspecified Formulation 05/26/2020 Seasonal Influenza, PF, 6 M & above, IM , (FluLaval or Fluzone) 06/19/2023,07/05/2022,05/26/2020 Seasonal Influenza, Quadriva lent, No Preserve, IM 07/14/2021 Seasonal Influenza, Split, I IV3, With Preserve, Inj 05/26/2015 documented as of this encounter Social History Tobacco Use Types Packs/Day Years Used Date Smoking Tobacco: Never Smokeless Tobacco: Never Comments:no passive smoke Alcohol Use Standard Drinks/Week Comments Yes 0 (1 standard drink = 0.6 oz pur e alcohol) occasionally Sex and Gender Information Value Date Recorded Sex Assigned at Not on file Gender Identity Not on file Sexual Orientation Not on file Job Start Date Occupation Industry Not on file Not on file Not on file documented as of this encounter Miscellaneous Notes * Telephone Encounter - Rachel Becker OSA - 10/02/2023 8:54 AM EST [facility] is requesting records of Storm[facility] for the purpose of continuation of care. Forwarded to [facility]. documented in this encounter Plan of Treatment Health Maintenance Due Date Last Done Comments Hepatitis B (1 of 3 - 3-dose series) 1972 COVID-19 Vaccine (#1) 1972 Pneumococcal Vaccine: Pediatrics (0 to 5 Years) and At-Risk Patients (6 to 64 Years) (1 - PCV) 1978 Depression Screening 1984 HIV Screening 1987 Albumin/Creatinine Ratio 1990 Hepatitis C Screening 1990 DTaP,Tdap,and Td Vaccines (1 - Tdap) 1991 Mammogram 2012 Lipid Panel 08/15/2016 08/15/2011 Cologuard 2017 Colonoscopy 2017 Colorectal Cancer Screening 2017 Fecal Occult Blood Test 2017 Sigmoidoscopy 2017 Zoster Vaccines (1 of 2) 2022 GFR 08/10/2023 08/10/2022, 05/27, 07/25/2015, Additional history exists Influenza Vaccine (FLU shot) Completed , 07/05/2022, 07/14/2021, Additional history exists GARDASIL-HPV IMMUNIZATION SERIES Aged Out No longer eligible based on patient's age to complete this topic MENINGOCOCCAL (MENACTRA/MENVEO) Aged Out No longer eligible based on patient's age to complete this topic documented as of this encounter Medical Devices Not on filedocumented as of this encounter Care Teams Heater Furnace Relationship Specialty Start Date End Date Efrem Colbert DO [address] [place] [address] PCP - General Family Medicine 04/24/23 documented as of this encounter
[2023-10-03] MEDS ORDERED: POLYETHYLENE (MIRALAX) 17 GM PACK PO PRN (02:50)
[2023-10-03] MEDS ORDERED: RIZATRIPTAN BENZOATE 10 MG TAB PO PRN (02:50)
[2023-10-03] MEDS ORDERED: ONDANSETRON INJ 2 MG/ML 2 ML VIAL IV PRN (02:50)
[2023-10-03 03:34] LABS: Amphetamines+Metham, Urine Neg (Neg); Barbiturates, Urine Neg (Neg); Benzodiazepine, Urine Neg (Neg); Cocaine, Urine Neg (Neg); MDMA (Ecstacy), Urine Neg (Neg); Marijuana, Urine Neg (Neg); Methadone, Urine Neg (Neg); Opiate, Urine Neg (Neg); Phencyclidine, Urine Neg (Neg)
[2023-10-03] MEDS: IBUPROFEN 600 MG TAB PO SCH (05:39)
[2023-10-03 07:31] LABS: Basophils # (auto) 0.01 K/uL (0.00-0.20); Basophils % (auto) 0.2 %; Hematocrit (blood only) 39.6 % (37.0-47.0); Hemoglobin 13.7 g/dl (12.0-16.0); Immature Granulocytes # (auto) 0.01 K/uL (0.01-0.20); Immature Granulocytes % (auto) 0.2 %; Lymphocytes # (auto) 0.56 K/uL (1.20-3.40); Lymphocytes % (auto) 9.7 %; Mean Corpuscular Hemoglobin 31.2 pg (25.0-34.0); Mean Corpuscular Hgb Conc 34.6 g/dL (32.0-36.0); Mean Corpuscular Volume 90.2 fL (80.0-100.0); Mean Platelet Volume 11.7 fL (9.4-12.4); Monocytes # (auto) 0.04 K/uL (0.11-0.59); Monocytes % (auto) 0.7 %; Neutrophils # (auto) 5.18 K/uL (1.40-6.50); Neutrophils % (auto) 89.2 %; Platelet Count 188 K/uL (130-400); RDW Coefficient of Variation 12.4 % (11.5-14.5); RDW Standard Deviation 41.2 fL (36.4-46.3); Red Blood Count 4.39 M/uL (4.20-5.40)
[2023-10-03] MEDS: ACETAMINOPHEN 500 MG TAB PO PRN (07:34)
[2023-10-03] MEDS: ENOXAPARIN INJ 40 MG/0.4 ML SYR SQ SCH (07:35)
[2023-10-03 07:44] LABS: Albumin Globulin Ratio 1.7 (0.9-2); Albumin Level 4.3 gm/dl (3.4-5.0); BUN Creatinine Ratio 12.4 (10-20); Bilirubin,Total 0.6 mg/dl (0.2-1.0); Calcium 9.2 mg/dl (8.6-10.3); Est GFR (African American) 71.2 ml/min; Est GFR (Non-African American) 61.4 ml/min; Globulin 2.5 gm/dl (2.5-4.0); Magnesium 1.9 mg/dl (1.7-2.4); Phosphorus 2.6 mg/dl (2.5-4.9); Potassium 4.2 mmol/L (3.5-5.1); Total Protein 6.8 gm/dl (6.0-8.3)
[2023-10-03] MEDS: valACYclovir HCL 500 MG TABLET PO SCH (18:06)
[2023-10-03] MEDS: diphenhydrAMINE 50 MG/ML VIAL IV STA (18:10)
[2023-10-03] MEDS: PROCHLORPERAZINE 10 MG in SYRINGE 8 ML IV ONE (18:11)
[2023-10-03] MEDS ORDERED: NON-FORMULARY MEDICATION (Omega 3-Dha-Epa-Fish Oil [Fish Oil] 1,000 mg (120 mg-180 mg) Cap PO SCH (21:00)
--- NOTE | 2023-10-03 21:39 | Billing Data ---
Date of Service October 03, 2023 Coding Level of Care Code 73280 INT INP/OBS CARE
[2023-10-03] MEDS: MAGNESIUM OXIDE 400 MG TAB PO SCH (22:01)
[2023-10-03] MEDS: PANTOprazole 40 MG TAB PO SCH (22:01)
[2023-10-03] MEDS: LOSARTAN POTASSIUM 50 MG TAB PO SCH (22:02)
[2023-10-03] MEDS: CETIRIZINE HCL 10 MG TABLET PO SCH (22:02)
[2023-10-03] MEDS: MONTELUKAST SODIUM 10 MG TABLET PO SCH (22:02)
[2023-10-03] MEDS: dexAMETHasone 10 MG in SYRINGE 0 ML IV SCH (22:03)
--- NOTE | 2023-10-03 22:09 | Hospitalist Progress Note ---
Date of Service October 03, 2023 Assessment & Plan (1) Headache: Plan: Posotional headache in a 53 yo female with an EBV infection. Patient has a red flag of being ovber 52 and having a positional headache that worsens when she sits up. Her symptoms do not appear to be that of a cluster headache. CTA head and neck reviewed ordered an MRI of her brain with and without contrast. will consult neuro. (2) Ari Rascon infection: (3) HTN (hypertension): (4) GERD (gastroesophageal reflux disease): Plan #EBV Pain control IV steroids #HTN continue losartan #GERD continue protonix FENGI: heart healthy Code status: Full DVT prophylaxis: Lovenox Isolation: none Disposition: med/surg Admission and Anticipated Discharge Date Admission Date: October 03, 2023 Subjective 53 yo female reports having a headache for the past 2 week. Patient reports her headache is worse when she sits up. She denies any photophobia. DUration is long and only improves when laying in bed. Review of Systems Review of Systems: All systems reviewed & are unremarkable except as noted in HPI & below Physical Exam Physical Exam: Constitutional: well-appearing, no acute distress HEENT: NCAT, no conjunctival injection, L cervical lymphadenopathy present, mildly TTP CV: regular rhythm, no murmur appreciated, extremities well-perfused, no LE edema Resp: CTABL GI: soft, nondistended, nontender MSK: no gross deformities appreciated Skin: warm, dry, no rash appreciated Neuro: alert, oriented, no focal neurologic deficit appreciated Results & Data Results & Data Vital Signs (Past 12 Hours) Vital Signs Temp Pulse Resp BP Pulse Ox O2 Del Method 10/03/23 22:07 36.8 C 62 18 116/73 98 Room Air 10/03/23 14:44 36.5 C 71 16 145/91 H 95 Room Air 10/03/23 11:18 36.7 C 55 L 16 131/73 97 Room Air PG Care Time/CCT Total # of Minutes Spent Total Time Spent with Patient: Total time spent is greater than 50% in coordination of care (as documented) at patient's floor/unit and/or counseling patient: Coding Level of Care Code 23164 SUB INP/OBS CARE 3/50MIN Diagnoses Headache R51.9 Ari Rascon infection B27.90 HTN (hypertension) I10 GERD (gastroesophageal reflux disease) K21.9
[2023-10-04 07:32] LABS: Hematocrit (blood only) 38.6 % (37.0-47.0); Hemoglobin 13.6 g/dl (12.0-16.0); Mean Corpuscular Hemoglobin 31.2 pg (25.0-34.0); Mean Corpuscular Hgb Conc 35.2 g/dL (32.0-36.0); Mean Corpuscular Volume 88.5 fL (80.0-100.0); Mean Platelet Volume 11.7 fL (9.4-12.4); Platelet Count 205 K/uL (130-400); RDW Coefficient of Variation 12.7 % (11.5-14.5); RDW Standard Deviation 40.9 fL (36.4-46.3); Red Blood Count 4.36 M/uL (4.20-5.40); White Blood Count 11.58 K/ul (4.8-10.8)
[2023-10-04 07:47] LABS: Anion Gap 6 (3-11); BUN Creatinine Ratio 14.6 (10-20); Blood Urea Nitrogen 14 mg/dl (6-23); C Reactive Protein < 0.50 mg/dl (0-0.5); Calcium 9.5 mg/dl (8.6-10.3); Carbon Dioxide 27 mmol/L (21-32); Chloride 104 mmol/L (98-107); Creatinine Clr Calc Pharmacy 62.4 ml/min; Est GFR (African American) 79.4 ml/min; Est GFR (Non-African American) 68.5 ml/min; Glucose 139 mg/dl (70-99(Fasting)); Potassium 3.9 mmol/L (3.5-5.1); Sodium 137 mmol/L (136-145)
--- NOTE | 2023-10-04 08:12 | Magnetic Resonance Report ---
MRI OF THE BRAIN WITHOUT AND WITH IV CONTRAST CLINICAL HISTORY: positional headache/ red flag new headache. COMPARISON STUDY: MRI of the brain June 21, 2020. Head CT and CTA of the head October 02, 2023. TECHNIQUE: Utilizing a 1.5 [place] magnet and dedicated coil, multiplanar, multiecho imaging of the br ain was performed pre and postcontrast administration. IV administration of 6.5 mL of Gadavist contr ast was uneventful. FINDINGS: There are no foci of restricted diffusion to suggest acute infarct. No acute intracranial h emorrhage, midline shift or mass effect is present. Brain volume is normal. Ventricular system is nor mal. Basal cisterns are patent. Flow-voids for the major intracranial vessels are present. There is n o intracranial mass or pathologic enhancement. A few punctate white matter T2 hyperintense foci are s imilar to previous MRI. Calvarial signal is normal. No evidence for sinusitis. No orbital abnormality . IMPRESSION: Unremarkable MRI of the brain. ACT 112: Negative or not required by law. Electronically signed by: Pipe Brito M.D. 10/04/2023 8:10 AM
--- NOTE | 2023-10-04 10:34 | Neurology Consultation ---
Date of Consultation October 04, 2023 Assessment & Plan (1) Headache: (2) Ari Rascon infection: Plan 53-year-old female with 2-week persistent headache, generalized malaise, fatigue, in the context of Ari-Rascon virus infection. She has an intact neurological examination. She has had normal imaging including CTA of the head and neck and brain MRI. No signs or symptoms suggestive of meningitis or encephalitis. A lumbar puncture is not necessary. Her headache tends to be worse with activity such as standing and walking, improves with rest. At this point, I find no evidence of a primary neurological process. Her headache is likely secondary to systemic illness with Ari-Rascon virus infection which appears to be relatively acute. I expect her symptoms to gradually improve with supportive care. She does have a history of episodic migraine, although her usu al Maxalt has not been helpful for her current headache. Although her headache has a postural component, I do not think she has a spinal headache. May utilize Toradol for her headache. May continue with dexamethasone during her hospitalization, would then recommend a Medrol Dosepak taper at discharge. Continue supportive medical care. If patient's headache persists, could consider adding topiramate as she does have a history of migraine as above. In that context, would start with topiramate 25 mg twice daily. Could increase to 50 mg twice daily after 1 week. Please contact me with any questions. History of Present Illness Reason for Consultation: headache Requesting Physician: Ian Attending Physician: Chandu Sosa History of Present Illness The patient is a 53-year-old female who presented to the emergency department yesterday afternoon with a complaint of persistent headache, sinus pressure, left-sided neck pain present for the past 2 weeks. Her headache is worse with activities such as standing, walking, improves with lying flat. She denies any associated nausea or emesis. She endorses mild associated light and sound sensitivity. She was treated recently as an outpatient for sinusitis with Augmentin and prednisone. Patient endorses a history of episodic migraine, low frequency, has a prescription for Maxalt which unfortunately was not very helpful for her current headache episode. She also complains of generalized fatigue and a feeling of mild weakness of the legs. She had an unremarkable CT of the head including CTA of the head and neck. She had a normal follow-up brain MRI as well, study done with and without IV contrast. I did independently review these images. No evidence of acute process. No hemorrhage. No abnormal enhancement. No hydrocephalus. No parenchymal signal abnormality. She has a mild leukocytosis this morning. Comprehensive metabolic panel normal. She has a normal CRP. Urine drug screen negative. She tested positive for acute Ari-Rascon virus infection on September 24, 2023. She has been receiving IV dexamethasone. She denies any vision disturbance such as vision loss or diplopia, no vertigo, no dysarthria or other change in speech, no focal weakness, clumsiness, tremors, or difficulty with gait or balance. No memory or cognitive complaints. Allergies Allergy/AdvReac Type Severity Reaction Status Date / Time ciprofloxacin Allergy Unknown Rash Verified 10/02/23 17:27 furosemide [From Lasix] Allergy Unknown itchy Verified 10/02/23 17:27 gluten Allergy Unknown Gastrointestinal Verified 10/02/23 17:27 Upset, MIGRAINES AND HIVES morphine Allergy Unknown feels like Verified 10/02/23 17:27 throat is closing up Sulfa (Sulfonamide Allergy Unknown Rash Verified 10/02/23 17:27 Antibiotics) Home Medications Medication Instructions Recorded Confirmed Type levocetirizine 5 mg tablet (Xyzal) 5 mg PO HS 07/07/19 10/02/23 History omega 7-uqi-pgy-fish oil 1,000 mg 2 cap PO HS 01/07/20 10/02/23 History (120 mg-180 mg) capsule (Fish Oil) ibuprofen 200 mg capsule 600 mg PO UD PRN Pain 05/04/20 10/02/23 History estradiol 0.01% (0.1 mg/gram) 1 g vaginal DAILY PRN irritation 11/27/21 10/02/23 History vaginal cream valacyclovir 1 gram tablet 2,000 mg PO BID PRN Cold Sores 11/27/21 10/02/23 History (Valtrex) rizatriptan 10 mg tablet (Maxalt) 10 mg PO DAILY PRN migraine 10/17/22 10/02/23 Rx headache #12 tabs montelukast 10 mg tablet 10 mg PO HS #90 tabs 08/08/23 10/02/23 Rx amoxicillin 875 mg-potassium 1 tab PO Q12H 10 days #20 tabs 09/24/23 10/02/23 Rx clavulanate 125 mg tablet clotrimazole-betamethasone 1 1 applic topical BID PRN flare 09/24/23 10/02/23 History %-0.05 % topical cream magnesium 250 mg tablet 250 mg PO HS 09/24/23 10/02/23 History losartan 100 mg tablet 100 mg PO HS 10/02/23 10/02/23 History pantoprazole 40 mg tablet,delayed 40 mg PO HS 10/02/23 10/02/23 History release Patient History Medical History HTN (hypertension) History of COVID-13 june 2021. symptoms: fatigue and chest congestion, mild sob, fever, body aches. no hospitalization. did receive the antibody infusion. History of migraine headaches TMJ (temporomandibular joint disorder) OCC CLICK, GRINDING OF TEETH - NO HX LOCKING Bulging disc LUMBAR Nausea and vomiting after administration of anesthetic agent Bradycardia Breast lump LEFT/HX ULTRASOUNDS / NO FINDINGS/MONITORS Surgical History S/P epidural steroid injection right SI Joint injection [place] teeth removed History of appendectomy History of lumpectomy of right breast benign History of right breast biopsy benign History of open reduction and internal fixation (ORIF) procedure left ankle---hardware in place History of colonoscopy History of esophagogastroduodenoscopy (EGD) History of sinus surgery Status post LASIK surgery HX S/P laparoscopic procedure HX OF, endometriosis S/P LEEP HX Hx of hysterectomy Hx of section 1994 Family History Aunt Breast cancer Father Diabetes Cardiac disorder Hypertension Heart disease Mother Hypertension Family history of reaction to anesthesia nausea/vomiting Grandfather Prostate cancer Sister No problems noted. Sister No problems noted. 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: No Beliefs That Will Affect Care: None marital status: Current Living Situation: Spouse Current Living Situation Comment: Lives with current occupational status: employed 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 [employer] Other Information That Helps Us Care for You: No Feels Safe at Home: Yes Safety Concerns: Feels Safe At This Time Childhood Exposure to Second-Hand Smoke: No Diet: gluten free during the past year weight has: remained stable Dental Care, Regularly: Yes Physical Activity Frequency: 3-4 Times per Week Seatbelt Use: always Sunscreen Use: Yes Assistive Devices: None Review of Systems Constitutional: + fatigue; no fever and no chills Eyes: no blind spots and no diplopia Ear, Nose, Mouth, Throat: no ear pain and no hearing loss Respiratory: + cough; no dyspnea Cardiovascular: no chest pain and no palpitations Gastrointestinal: no nausea and no vomiting Genitourinary: no dysuria and no urinary incontinence Musculoskeletal: + neck pain and + body aches; no back pa in Integumentary: no rash and no lesions Neurologic: as per Subjective / HPI and + headache(s); no gait abnormality, no localized weakness, no loss of sensation, no lack of coordination, no tremor(s), no abnormal movements, no syncope, no abnormal speech, no confusion and no memory loss Psychiatric: no depression and no anxiety Exam (Neuro) Constitutional: well developed and well nourished; no acute distress Eyes: normal visual stock by confrontation, PERRL and EOM intact bilaterally; no nystagmus Neurologic: Oriented to:: Person, Place and Time Memory: Short Term Intact and Remote Intact Attention: Span Intact and Concentration Intact Speech Fluency: negative Dysarthria or Dysfluency Speech Aphasia: negative Aphasia Fund of Knowledge: Current Events, Past History and Vocabulary Cranial Nerves: Normal II, III, IV, , V, VII, VIII, IX, X, XI and XII Motor Strength: Normal Lower Extremities and Normal Upper Extremities Motor Tone: Normal Lower Extremities and Normal Upper Extremities Muscle Bulk/Involuntary Movements: No Involuntary Movements; negative Muscle Atrophy Sensation: Light Touch Intact, Pain/Temperature Intact, Vibration Intact and Proprioception Intact Coordination: Normal; negative Limited Balance, Dysdiadochokinesia, Finger-Nose Abnormal or Heel-Vogt Abnormal Deep Tendon Reflexes: Rt Triceps: 2+, Lt Triceps: 2+, Rt Biceps: 2+, Lt Biceps: 2+, Rt Brachioradialis: 2+, Lt Brachioradialis: 2+, Rt Patellar: 2+, Lt Patellar: 2+, Rt Ankle: 2+ and Lt Ankle: 2+ Special Tests: negative Babinski Present Gait: Normal Station and Gait Details: No nuchal rigidity Results & Data Vital Signs (Past 12 Hours) Vital Signs Temp Pulse Resp BP Pulse Ox O2 Del Method 10/04/23 07:24 36.3 C L 84 16 126/69 98 Room Air Coding Level of Care Code 00317 INT INP/OBS CARE 3/75MIN Diagnoses Headache R51.9 Ari Rascon infection B27.90 Time Spent (min) 80 Comment Total time includes patient contact, chart review, counseling, note preparation
--- NOTE | 2023-10-04 14:13 | Discharge Summary ---
Date of Service October 04, 2023 Admission HPI Per Admitting Provider 53 yo female PMHx HTN, migraine, GERD admitted with L facial swelling/pain/lymphadenopathy in the setting of recent diagnosis of EBV. Patient initially treated with abx for suspected sinus infection. Symptoms did not resolve. Given steroid taper with initial improvement. Over the last day or two pain and swelling in region of lymphadenopathy has increased. Endorses headache. No difficulty swallowing. Denies CP, SOB, V/D. Some nausea with standing. ED course Imaging: unremarkable Labs: unremarkable IV tylenol, IV benedryl, IV ketorolac, zofran VSS Discharge Data Allergies Allergy/AdvReac Type Severity Reaction Status Date / Time ciprofloxacin Allergy Unknown Rash Verified 10/02/23 17:27 furosemide [From Lasix] Allergy Unknown itchy Verified 10/02/23 17:27 gluten Allergy Unknown Gastrointestinal Verified 10/02/23 17:27 Upset, MIGRAINES AND HIVES morphine Allergy Unknown feels like Verified 10/02/23 17:27 throat is closing up Sulfa (Sulfonamide Allergy Unknown Rash Verified 10/02/23 17:27 Antibiotics) Consultations 10/02/23 22:13 ED Decision to Admit Stat 10/03/23 17:45 Consult Neurology Routine Ordered Studies 10/02/23 15:19 CT angio head wo/w Stat CT angio neck with con Stat 10/03/23 17:57 MR brain wo/w con Routine Hospital Course (1) Headache: Posotional headache in a 53 yo female with an EBV infection. Patient has a red flag of being ovber 52 and having a positional headache that worsens when she sits up. Her symptoms do not appear to be that of a cluster headache. CTA head and neck reviewed ordered an MRI of her brain with and without contrast. will consult neuro. (2) Ari Rascon infection: (3) HTN (hypertension): (4) GERD (gastroesophageal reflux disease): Plan #EBV Pain control IV steroids #HTN continue losartan #GERD continue protonix FENGI: heart healthy Code status: Full DVT prophylaxis: Lovenox Isolation: none Disposition: med/surg Discharge Plan Discharge Items Patient Disposition: Home - Self-Care Reason For Visit: L NECK SWELLING/PAIN Discharge Diagnosis: headache Activity: Per Instructions section Non-emergency contact: Primary Care Provider Call non-emergency contact if: you have any medication questions Follow-up/Referrals: Coby Womack MD [Primary Care Provider] - 10/11/23 10:00 am Diet: Regular Addtl Attending Provider Instructions: Regarding your headache, we were concerned with it being a complicated headache. Thankfully, workup has been negative, ruling out bad things such as tumors, strokes, bleeding. Neurology saw you and recommended to trial you on a medrol dose pack. Continue with tylenol taking 4 times a day for the next 2 weeks. Please abstain from alcohol during this time as tylenol with alcohol can increase risk of liver damage. Will recommend close followup with your PCP. Will recommend you take it slow in regards to physical activity for the next few weeks. Pending Studies at Discharge: No Stand-Alone Forms: My [facility], Smoking Cessation Medications and DC Order Prescriptions: New acetaminophen [Tylenol] 325 mg capsule 650 mg PO QID 14 Days Qty: 112 0RF methylprednisolone [Medrol (Rigoberto)] 4 mg tablets,dose pack 4 mg PO DAILY Qty: 21 0RF Rx Instructions: take as directed Continued rizatriptan [Maxalt] 10 mg tablet 10 mg PO DAILY PRN (Reason: migraine headache) Qty: 12 1RF montelukast 10 mg tablet 10 mg PO HS Qty: 90 3RF clotrimazole-betamethasone 1-0.05 % cream 1 applic topical BID PRN (Reason: flare) levocetirizine [Xyzal] 5 mg tablet 5 mg PO HS omega 8-eql-rgn-fish oil [Fish Oil] 1,000 mg (120 mg-180 mg) Capsule 2 cap PO HS magnesium 250 mg tablet 250 mg PO HS ibuprofen 200 mg Capsule 600 mg PO UD PRN (Reason: Pain) valacyclovir [Valtrex] 1 gram tablet 2,000 mg PO BID PRN (Reason: Cold Sores) Rx Instructions: Start KENIA after start of symptoms estradiol 0.01 % (0.1 mg/gram) cream 1 g vaginal DAILY PRN (Reason: irritation) pantoprazole 40 mg tablet,delayed release (DR/EC) 40 mg PO HS losartan 100 mg tablet 100 mg PO HS Discontinued amoxicillin-pot clavulanate 875-125 mg tablet 1 tab PO Q12H 10 Days Qty: 20 0RF Rx Instructions: Start Date 09/24/23 - End Date 2/9/24 Discharge Orders: Discharge Order (Routine); Ordered 10/04/23 Ordered By: Chandu Sosa Admission Data Admit Date/Time: 10/03/23 18:10 Attending Provider: Chandu Sosa Admit Provider: Chandu Sosa Primary Care Provider: Coby Womack Other Providers: Kojo Bhatt; Efrem Guaman; Lauro Valentine; Ingrid Florence; Angelique Smith; Lynne Stafford; Chandana Mendez Other Interventions: Discharge Summary Assessment (RN) Last Done: 10/04/23 13:56 Coding Diagnoses Headache R51.9 Ari Rascon infection B27.90 HTN (hypertension) I10 GERD (gastroesophageal reflux disease) K21.9
== END 2023-10-04 15:07 | disposition home or self-care (01) | DRG 866 ==
LOC: ED 15:13 → 3N 15:13 → SUATTDRO 23:17 → 3N 10-03 01:28